=== PATIENT | female | born 1985 | race Caucasian/White ===

== ENCOUNTER 2021-03-04 16:09 | Inpatient (IN) | payer OTHER ==
[~2021-03-04] VITALS: Ht 165.1 cm; Wt 131.2 kg
[2021-03-04 17:32] LABS: BILIRUBIN NEGATIVE (NEGATIVE); BLOOD NEGATIVE Ery/uL (NEGATIVE); CLARITY CLEAR (CLEAR); COLOR YELLOW (YELLOW); GLUCOSE (U) NORMAL (NORMAL); LEUKOCYTES NEGATIVE Leu/uL (NEGATIVE); NITRITE NEGATIVE (NEGATIVE); PROTEIN NEGATIVE (NEGATIVE)
[2021-03-04 18:38] LABS: HCT 35.1 % (37.0-47.0); HGB 12.1 g/dl (12.5-16.0); MCH 30.9 pg (25.0-31.0); MCHC 34.5 g/dL (32.0-36.0); MCV 89.8 fL (78.0-100.0); MPV 10.8 fL (6.0-9.5); RBC 3.91 M/uL (4.20-5.40); RDW 14.4 % (11.5-14.0)
[2021-03-04 22:03] LABS: AMPHETAMINES NEGATIVE (NEGATIVE); BARBITURATES NEGATIVE (NEGATIVE); ECSTASY (MDMA) NEGATIVE (NEGATIVE); MARIJUANA (THC) NEGATIVE (NEGATIVE); METHADONE NEGATIVE (NEGATIVE); OPIATES NEGATIVE (NEGATIVE); OXYCODONE NEGATIVE (NEGATIVE)
[2021-03-06 07:14] LABS: HCT 31.3 % (37.0-47.0); HGB 10.4 g/dl (12.5-16.0); MCH 30.8 pg (25.0-31.0); MCHC 33.2 g/dL (32.0-36.0); MCV 92.6 fL (78.0-100.0); MPV 10.7 fL (6.0-9.5); RBC 3.38 M/uL (4.20-5.40); RDW 14.7 % (11.5-14.0)
[2021-03-06] MEDS ORDERED: ASPIRIN EC81 M1 PO (12:16)
[2021-03-06] MEDS ORDERED: PRENATAL FORMU1 EACH PO (12:17)
[2021-03-06] MEDS ORDERED: FEOSOL325 MG PO (12:17)
[2021-03-07] MEDS ORDERED: PRENATAL FORMU1 EACH PO (06:33)
[2021-03-07] MEDS ORDERED: IBUPROFEN800 MG PO (06:40)
== END 2021-03-07 11:38 | disposition home or self-care (01) | DRG 807 ==
LOC: FOD 16:09 → FOB 16:12 → FOD 21:48 → FOB 21:49
PROVIDERS: ADMIT Specialist
PROC: 10E0XZZ Delivery of Products of Conception, External Approach (ICD-10-PCS; principal; 2021-03-05)
PROC: 0HQ9XZZ Repair Perineum Skin, External Approach (ICD-10-PCS; 2021-03-05)
PROC: 10H07YZ Insertion of Other Device into Products of Conception, Via Natural or Artificial Opening (ICD-10-PCS; 2021-03-05)
DX: O60.23X0 Term delivery with preterm labor, third trimester, not applicable or unspecified (principal); Z37.0 Single live birth; O99.214 Obesity complicating childbirth; O24.429 Gestational diabetes mellitus in childbirth, unspecified control; Z3A.36 36 weeks gestation of pregnancy; Z20.822 Contact with and (suspected) exposure to COVID-19; O69.81X0 Labor and delivery complicated by cord around neck, without compression, not applicable or unspecified; O70.0 First degree perineal laceration during delivery
CPT/HCPCS: 36415; 80305; 81003; 86850; 86900; 86901; J7120; U0002